=== PATIENT | male | born 1995 | race Caucasian/White ===

== ENCOUNTER 2017-11-30 12:32 | Emergency (ER) | payer BC, MEDICAID ==
[~2017-11-30] VITALS: Ht 182.9 cm; Wt 72.6 kg
[2017-11-30] MEDS ORDERED: NORCO 5-325 TA1 EACH PO (14:29)
== END 2017-11-30 14:45 | disposition home or self-care (01) ==
LOC: ED 12:32
DX: S93.601A Unspecified sprain of right foot, initial encounter (principal); X50.9XXA Other and unspecified overexertion or strenuous movements or postures, initial encounter; Y93.39 Activity, other involving climbing, rappelling and jumping off
CPT/HCPCS: 73630; 99283